=== PATIENT | male | born 1985 | race African-American/Black ===

== ENCOUNTER 2017-04-19 22:43 | Emergency (ER) | payer OTHER ==
[~2017-04-19] VITALS: Ht 170.2 cm; Wt 54.4 kg
[2017-04-19] MEDS ORDERED: EYE DROPS (23:28)
--- NOTE | 2017-04-19 23:29 | NUR ---
Patient unable to perform eye assessment due to sensitivity to light, patient refused test.
--- NOTE | 2017-04-19 23:54 | NUR ---
Patient discharged to home in stable conditon. Written and verbal after care instructions given. Patient verbalizes understanding of instructions.
== END 2017-04-19 23:55 | disposition home or self-care (01) ==
LOC: ER 22:43
DX: S05.01XA Injury of conjunctiva and corneal abrasion without foreign body, right eye, initial encounter (principal); Z88.0 Allergy status to penicillin; X58.XXXA Exposure to other specified factors, initial encounter; Y93.89 Activity, other specified; Y92.9 Unspecified place or not applicable; Y99.9 Unspecified external cause status
CPT/HCPCS: A4663

== ENCOUNTER 2017-11-26 01:32 | Emergency (ER) | payer OTHER ==
[~2017-11-26] VITALS: Ht 170.2 cm; Wt 54.4 kg
[~2017-11-26 01:32] MED LIST: EYE DROPS
--- NOTE | 2017-11-26 01:49 | NUR ---
Dr. Dougherty at bedside for MSE.
[2017-11-26] MEDS ORDERED: NEOMY/BACITRA/POLYMYXIN B OINT UD PACKET TP ONE ×2 (02:00→02:02)
--- NOTE | 2017-11-26 02:10 | NUR ---
Patient discharged to home in stable conditon. Written and verbal after care instructions given. Patient verbalizes understanding of instructions. Patient ambulated out of ER with steady gait, no acute signs of distress, VSS, all belongings taken.
[2017-11-26 02:23] VITALS: BP 135/91
== END 2017-11-26 02:10 | disposition home or self-care (01) ==
LOC: ER 01:35
DX: N50.811 Right testicular pain (principal); Z88.0 Allergy status to penicillin
CPT/HCPCS: A4663

== ENCOUNTER 2019-07-05 21:20 | Emergency (ER) | payer OTHER ==
[~2019-07-05] VITALS: Ht 172.7 cm; Wt 59.0 kg
--- NOTE | 2019-07-05 21:27 | NUR ---
PT AMBULATORY FR HOME, C/O CHEST PAIN AND DIZZINESS FOR 3DAYS CURRENTLY DENIES PAIN BUT STATES HE HAS BEEN HAVING 5/10 PRESSURE NONRADIATING PAIN ON THE CHEST INTERMITTENTLY PT AOX3, ABLE TO SPEAK CLEAR AND COMPLETE SENTENCES DENIES RECENT SURGERIES NOR TRAUMA TO THE SITE DENIES RECENT TRAVELS/NONSMOKER/NO ALCOHOL USE/DENIES RECREATIONAL DRUG USE DENIES SOB/FEVER/CHILLS/NVD LAST ORAL INTAKE WAS 10MINS SENIOR SCIENTIST MONITORED ACCORDINGLY SIDERAILSX2 UP CHANGED TO PT GOWN BED AT LOWEST LEVEL MD AT BEDSIDE FOR HX AND PHYSICAL
--- NOTE | 2019-07-05 22:00 | NUR ---
PT NAD AWAKE
[2019-07-05 22:09] LABS: BASOPHILS % (AUTO) 0.6 % (0.0-2.0); EOSINOPHILS # (AUTO) 0.3 K/uL (0.0-0.7); EOSINOPHILS % (AUTO) 6.4 % (0.0-7.0); HEMATOCRIT 45.7 % (36.7-47.1); HEMOGLOBIN 14.9 g/dL (12.5-16.3); LYMPHOCYTES # (AUTO) 1.3 K/uL (20.0-40.0); MEAN CORPUSCULAR HEMOGLOBIN 27.8 uug (23.8-33.4); MEAN CORPUSCULAR HGB CONC 33 g/dL (32.5-36.3); MEAN CORPUSCULAR VOLUME 85.3 fL (73.0-96.2); MONOCYTES # (AUTO) 0.3 K/uL (2.0-10.0); MONOCYTES % (AUTO) 6.1 % (0.0-11.0); NEUTROPHILS # (AUTO) 2.9 K/uL (1.8-8.9); NEUTROPHILS % (AUTO) 59.9 % (38.5-71.5); PLATELET COUNT (AUTO) 245 K/uL (152-348); RED BLOOD CELL COUNT(AUTO) 5.36 MIL/uL (4.06-5.63); WHITE BLOOD COUNT (AUTO) 4.9 K/uL (3.6-10.2)
[2019-07-05 22:17] LABS: CARBON DIOXIDE 27 mmol/L (21-32); CHLORIDE 102 mmol/L (98-107); GLUCOSE 122 mg/dL (74-106); UREA NITROGEN, BLOOD 19 mg/dL (7-18)
[2019-07-05 22:29] LABS: ALANINE AMINOTRANSFERASE 23 U/L (16-63); ALKALINE PHOSPHATASE 76 U/L (50-136); ASPARTATE AMINOTRANSFERASE 16 U/L (15-37); BILIRUBIN,DIRECT 0.1 mg/dL (0.0-0.2); BILIRUBIN,TOTAL 0.4 mg/dL (0.2-1.0); TOTAL PROTEIN, SERUM 7.3 g/dL (6.4-8.2)
--- NOTE | 2019-07-05 22:38 | NUR ---
Patient discharged to home in stable conditon. Written and verbal after care instructions given. Patient verbalizes understanding of instructions. AMBULATORY W/ STABLE GAIT ALL BELONGINGS W/ PT
[2019-07-05 22:41] VITALS: BP 117/70
== END 2019-07-05 22:41 | disposition home or self-care (01) ==
LOC: ER 21:20
DX: R07.89 Other chest pain (principal); Z88.0 Allergy status to penicillin; Z79.899 Other long term (current) drug therapy
CPT/HCPCS: 36415; 70030-TC; 71045; 85025; 85730; 93005; A4663